=== PATIENT | female | born 1950 | race Caucasian/White ===

== ENCOUNTER 2021-09-13 09:05 | Outpatient (REF) | payer MEDICARE, OTHER, SELFPAY | END 2021-09-13 09:06 | disposition home or self-care (01) | LOC: HO.HMGCLDS 09:05 | PROVIDERS: PCP Internal Medicine; Visit Provider Internal Medicine | DX: Z20.822 Contact with and (suspected) exposure to COVID-19 (principal) | CPT/HCPCS: C9803; U0003; U0005 ==

== ENCOUNTER 2022-12-22 16:09 | Outpatient (REF) | payer MEDICARE, OTHER, SELFPAY ==
--- NOTE | ~2022-12-22 | US_ITS ---
EXAMINATION: US VENOUS ULTRASOUND WITH DOPPLER LOWER EXTREMITY, RIGHT CLINICAL INFORMATION: Right leg pain, history of DVT COMPARISON: None TECHNIQUE: Ultrasound of the deep veins is performed from the hip to the calf with compression sonography and color and pulse Doppler assessment. Spectral analysis with color-flow imaging is performed. FINDINGS: There is normal venous compression and respiratory variation and augmented flow. The visualized common femoral vein, superficial femoral vein, profunda femoral vein, popliteal vein, and the trifurcation region shows no evidence of deep venous thrombosis. There is no significant popliteal fossa cyst. If the patient's symptoms persist, followup ultrasound in 5 days 7 days might be of value to exclude proximal propagation from a non-visualized calf vein. US/US venous duplex LE RT IMPRESSION: No DVT demonstrated in the right lower extremity.
== END 2022-12-22 16:10 | disposition home or self-care (01) ==
LOC: HO.HMGCX 16:09
PROVIDERS: PCP Internal Medicine; Visit Provider Internal Medicine
DX: I82.403 Acute embolism and thrombosis of unspecified deep veins of lower extremity, bilateral (principal)
CPT/HCPCS: 93971

== ENCOUNTER 2024-12-11 09:46 | Outpatient (AMB) | payer MEDICARE, OTHER, SELFPAY ==
--- NOTE | 2024-12-11 09:51 | MHC.OFFVIS ---
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 She is having pain left shoulder. She reports this time for cortisone injection. She sees [facility]. Denies difficulty with getting up out of bed. No pain in right shoulder or neck. Denies thigh pain. No joint swelling. She continues to have numbness in her hands. She had nerve conduction study done at [facility] and reports that carpal tunnel syndrome right hand is worse than left. Review of Systems Const All systems reviewed & are unremarkable except as noted in HPI and below Physical Exam Vital Signs: Last Vital Signs Pulse 67 12/11/24 09:55 BP 150/80 H 12/11/24 09:55 Pulse Ox 97 12/11/24 09:55 Oxygen Delivery Method Room Air 12/11/24 09:55 BMI result Body Mass Index 28.0 Const Other: General: Comfortable CVS: RRR Respiratory: clear to auscultation bilaterally. Good respiratory effort Skin: No lesions seen MSK: Squaring of CMCs. Heberden nodes and Allan's nodes present. Loss of muscle bulk of right hypothenar muscle. 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 Good range of motion of right shoulder. Left shoulder abduction 170 degrees with pain. Limited full internal rotation of left shoulder. Good external rotation of left shoulder. She is able to get up out of exam table to standing position without using arms on armrest. Good range of motion of lower extremities. Assessment & Plan Assessment & Plan (1) Osteoarthritis of carpometacarpal (CMC) joint of both thumbs: Comment: Contributing time weakness Code(s): M18.0 - Bilateral primary osteoarthritis of first carpometacarpal joints Category: Medical Plan: OT ordered. Patient prefers to have occupational therapy in the spring. She will schedule visit. (2) Bilateral carpal tunnel syndrome: Comment: Diagnosed by nerve conduction study performed at the [facility]. She continues to wear wrist braces at night with minimal benefit. We discussed considering next steps for treatment with cortisone injections. Her symptoms are tolerable and she prefers to continue to wear wrist braces at night. Code(s): G56.03 - Carpal tunnel syndrome, bilateral upper limbs Category: Medical Plan: Continue to wear wrist braces at night I am requesting nerve conduction study results from [facility] Return to clinic in 6 months or sooner if needed (3) Osteoarthritis of glenohumeral joints, bilateral: Comment: Uncontrolled pain left shoulder. She is being managed by [facility] surgeons. Code(s): M19.011 - Primary osteoarthritis, right shoulder; M19.012 - Primary osteoarthritis, left shoulder Category: Medical Plan: Follow-up with [facility] for left shoulder cortisone injection (4) Arthralgia of multiple joints: Comment: She had an episode in 2019 4 where she had chronic pain in her legs from thighs to calves for a year, which was exacerbated with movement from upper extremities. She also had limited shoulder movement. Eventually she received right shoulder cortisone injection for management of degenerative joint disease 11/16/2023, which improved range of motion and pain of upper extremities and lower extremities. She has not had recurrence of similar episode. Inflammatory markers 03/26/2024 were normal. Can consider PMR in the differential diagnosis. Code(s): M25.50 - Pain in unspecified joint Category: Medical Plan: Monitor clinically Orders: Orders OT Evaluation and Treatment Today G56.03 - Carpal tunnel syndrome, bilateral upper limbs, M18.0 - Bilateral primary osteoarthritis of first carpometacarpal joints Coding Level of Care Code Est Pt Level 4 (50983) Complex EM visit Add On G2211 Diagnoses Osteoarthritis of carpometacarpal (CMC) joint of both thumbs M18.0 Bilateral carpal tunnel syndrome G56.03 Osteoarthritis of glenohumeral joints, bilateral M19.011; M19.012 Arthralgia of multiple joints M25.50
[2024-12-11 09:55] VITALS: BP 150/80; PULSE 67; O2SAT 97; BMI 28.0
--- OUTSIDE RECORDS SUMMARY | 2024-12-11 11:12 | XMS_ITS | Encounter Summary ---
Author Organization [facility] Address [address] [place] [address] Care Team Providers Care Notching Press Operator Name Role Phone Erum Ace MD Primary Care Provider [phone] Encounter Details Date Type Department Care Team (Late Contact Info) Description 07/14/2024 10:00 AM EDT Hospital Encounter TH HISTORIC ENCOUNTERS EASTERN CONVERSION ONLY Quan-Ninfa Gray MD [address] [place] [phone] Social History Tobacco Use Types Packs/Day Years Used Date Smoking Tobacco: Never Smokeless Tobacco: Never Alcohol Use Standard Drinks/Week Comments Yes 1 (1 standard drink = 0.6 oz pur e alcohol) Comments Unknown Sex and Gender Information Value Date Recorded Sex Assigned at Not on file Legal Sex Female 10:15 AM EST Gender Identity Not on file Sexual Orientation Not on file documented as of this encounter Plan of Treatment Upcoming Encounters Date Type Department Care Team (Late Contact Info) Description 01/22/2025 10:00 AM EDT Appointment Bone Density - [address] [phone] 02/12/2025 1:40 PM EDT Appointment Radiology Department - [address] [phone] 04/20/2025 9:45 AM EDT Office Visit Adult Medicine [facility] [address], [place] [phone] Johanna Rm PA [address], [place] 07/13/2025 11:30 AM EDT Office Visit [facility] Hematology Oncology [address] [place] [phone] Ninfa Caicedo MD [address] [place] [phone] documented as of this encounter Visit Diagnoses Not on filedocumented in this encounter Care Teams Notching Press Operator Relationship Specialty Start Date End Date Erum Ace MD [address] [place] [address] PCP - General Internal Medicine 03/22/21 documented as of this encounter
--- OUTSIDE RECORDS SUMMARY | 2024-12-11 11:12 | XMS_ITS | Clinical Summary ---
Author Organization [facility] Address [address] [place] [address] Care Team Providers Care Senior Licensing Manager Name Role Phone Erum Ace MD Primary Care Provider [phone] Allergies Active Allergy Reactions Criticality Noted Date Comments Penicillins 05/19/2020 Medications Medication Sig Dispensed Refills Start Date End Date Status FLUoxetine (PROzac) 20 MG capsule Take 20 mg by mouth daily. 0 Active traZODone (DESYREL) 25 MG split tablet Take 50 mg by mouth every night at bedtime. 0 Active vitamin C (ASCORBIC ACID) 250 MG tablet Take 250 mg by mouth daily. 0 Active Calcium Carb-Cholecalciferol (CALCIUM 1000 + D PO) Take 1,000 mg by mouth daily. 0 Active Multiple Vitamins-Minerals (MULTIVITAMIN ADULT PO) Take 1 tablet by mouth daily. 0 Active VITAMIN D PO Take by mouth. 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 Overview: Overview: S/P LUMPECTOMY AND XRT 2006 Immunizations Name Administration Dates Next Due Covid-19 (Pfizer) Dilution Required 01/14/2021,0 12/22/2020 Social History Tobacco Use Types Packs/Day Years Used Date Smoking Tobacco: Never Smokeless Tobacco: Never Alcohol Use Standard Drinks/Week Comments Yes 1 (1 standard drink = 0.6 oz pur e alcohol) More of a soical drinker Sex and Gender Information Value Date Recorded Sex Assigned at Not on file Gender Identity Not on file Sexual Orientation Not on file Job Start Date Occupation Industry Not on file Not on file Not on file Last Filed Vital Signs Vital Sign Reading Time Taken Comments Blood Pressure 152/64 07/14/2024 10:05 AM EDT Pulse 63 07/14/2024 10:05 AM EDT Temperature 36.8 ??C (98.3 ??F) 07/14/2024 10:05 AM E DT Respiratory Rate - - Oxygen Saturation 99% 07/14/2024 10:05 AM EDT Inhaled Oxygen Concentration - - Weight 73.2 kg (161 lb 6.4 oz) 07/14/2024 10:05 AM EDT Height 161.3 cm (5' 3.5 ) 07/14/2024 10:05 AM ED T Body Mass Index 28.14 07/14/2024 10:05 AM EDT Plan of Treatment Health Maintenance Due Date Last Done Comments Hepatitis C Screening 1950 Pneumococcal Vaccine (1 of 2 - PCV) 1954 Depression Screening 1960 Preventative Health Evaluation 1966 Shingrix-Zoster Vaccine (1 o f 2) 1967 Fall Risk Assessment 2013 Osteoporosis Screening (DEXA Scan) 2013 DTap / Tdap / Td (2 - Td or Tdap) 07/17/2022 07/17/2012 RSV Adult > 60+ Yrs or (1 - 1-dose 75+ series) 2023 COVID-19 Vaccine (4 - 2023-2 5 season) 2024 08/05/2021, 01/14/2021, 12/22/2020 Influenza Vaccine (#1) 2024 Hepatitis B Vaccines Aged Out No long er eligible based on patient's age to complete this topic RSV Ped < 20 months Aged Out No longe r eligible based on patient's age to complete this topic Care Teams Senior Licensing Manager Relationship Specialty Start Date End Date Erum Ace MD PCP - General Internal Medicine 07/08/21
--- OUTSIDE RECORDS SUMMARY | 2024-12-11 11:12 | XMS_ITS | Clinical Summary ---
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 4 Active calcium carbonate 1,500 mg (600 mg elemental calcium) tablet Take 1 tablet (1,500 mg total) by mouth 2 (two) times a day. 4 Active ascorbic acid (VITAMIN C) 250 mg tablet Take 1 tablet (250 mg total) by mouth 4 (four) times a week. Active MULTIVITAMIN ORAL Take 1 tablet by mouth 1 (one) time each day. Active aspirin 325 mg tablet Take 1 tablet (325 mg total) by mouth 1 (one) time each day. Active traZODone (DESYREL) 50 mg tablet TAKE 1 TABLET BY MOUTH EVERY DAY AT BEDTIME NEEDED FOR SLEEP 90 tablet 4 Active FLUoxetine (PROzac) 20 mg capsule TAKE 1 CAPSULE BY MOUTH EVERY DAY 90 capsule 1 5 Active FLUoxetine (PROzac) 20 mg capsule Take 1 capsule (20 mg total) by mouth 1 (one) time each day. 4 12/10/19 25 Discontinued Active Problems Problem Noted Date Diagnosed Date History of DVT (deep vein thrombosis) 09/03/2024 Overview (09/03/2024): 2007, Right Leg Intraductal papilloma 03/06/2023 Overview (09/03/2024): 03/06 right intraductal papilloma Vitamin D deficiency 10/26/2021 History of hip replacement, total, right 019 Overview (09/03/2024): 2010 for OA Osteoarthritis of fingers of both hands 11/01/19 Inflammatory arthritis 02/22/2018 Neutropenia 07/18/2012 Osteopenia 02/27/2007 Overview (09/03/2024): DXA 12/2021: t score lumbar spine -2.0, t score hip -2.1. 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 Overview (09/03/2024): S/P LUMPECTOMY AND XRT 2006 Depression 10/05/2005 Encounters Date Type Department Care Team Description 10/21/2024 8:15 AM EST Office Visit Adult Medicine [address] [phone] Erum Ace MD Other depression (Primary Dx); Vitamin D deficiency; Osteopenia, unspecified location; Menopause from Last 3 Months Immunizations Name Administration Dates Next Due Pfizer SARS-CoV-2 COVID-19, mRNA, LNP-S, preservative free 08/05/2021 Td Tetanus diptheria (Tdvax) 7yo and older 09/26 Td, Unspecified 04/22/2002 Tdap Tetanus diptheria acell ular pertussis (Boostrix; Adacel) 7yo and older 07/17/2012 Surgical History Surgery Date Site/Laterality Comments TONSILLECTOMY TOTAL HIP ARTHROPLASTY 03/15/2011 Right BREAST LUMPECTOMY 10/15/2005 Left lumpectomy with RT COLONOSCOPY 07/31/2005 no polyps COLONOSCOPY 07/15/2015 no polyps SCREENING MAMMOGRAM 03/05/2023 Bilateral Medical History Medical History Date Comments Osteopenia 02/27/2007 DXA 12/2021: t sc ore lumbar spine -2.0, t score hip -2.1. 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 S/P LUMPECTOMY AND XRT 2005 Depression 10/05/2005 Neutropenia (CMS/HCC) 07/18/2012 Inflammatory arthritis 02/22/2018 History of hip replacement, total, right 11/01/2018 2011 for OA Vitamin D deficiency 10/26/2021 Intraductal papilloma 03/06/202303/06 right intraductal papilloma Osteoarthritis of fingers of both hands 11/01/2018 History of DVT (deep vein thrombosis) 09/03/20242007, Right Leg Family History Medical History Relation Name Comments Breast cancer Daughter Stroke Father Breast cancer Mother Pancreatic cancer Other maternal u ncle Stomach cancer Paternal Grandfather Relation Name Status Comments Daughter Father Mother Other Paternal Grandfather Social History Tobacco Use Types Packs/Day Years Used Date Smoking Tobacco: Never Smokeless Tobacco: Never Tobacco Cessation:Counseling Given: Not Answered Alcohol Use Standard Drinks/Week Comments Yes 1 (1 standard drink = 0.6 oz pur e alcohol) Comments Unknown Sex and Gender Information Value Date Recorded Sex Assigned at Not on file Legal Sex Female 10:15 AM EST Gender Identity Not on file Sexual Orientation Not on file Obstetrics History Last Filed Vital Signs Vital Sign Reading Time Taken Comments Blood Pressure 134/70 10/21/2024 8:13 AM EST Pulse 80 10/21/2024 8:13 AM EST Temperature 36.2 ??C (97.1 ??F) 10/21/2024 8:13 AM ES T Respiratory Rate 16 10/21/2024 8:13 AM EST Oxygen Saturation 97% 10/21/2024 8:13 AM EST Inhaled Oxygen Concentration - - Weight 72.5 kg (159 lb 12.8 oz) 10/21/2024 8:13 AM EST Height 160 cm (5' 3 ) 10/21/2024 8:13 AM EST Body Mass Index 28.31 10/21/2024 8:13 AM EST Plan of Treatment Upcoming Encounters Date Type Department Care Team (Late st Contact Info) Description 01/22/2025 10:00 AM EDT Appointment Bone Density - [address] [phone] 02/12/2025 1:40 PM EDT Appointment Radiology Department - [address] [phone] 04/20/2025 9:45 AM EDT Office Visit Adult Medicine [facility] - [address] [phone] Johanna Rm PA [address] [place], [place] 07/13/2025 11:30 AM EDT Office Visit [facility] Hematology Oncology [address] [place] [phone] Quan-Ninfa Gray MD [address] [place] [phone] Health Maintenance Due Date Last Done Comments Pneumococcal Vaccine: 50+ Years (1 of 2 - PCV) 1969 Zoster Vaccines (1 of 2) 1969 Social Influencers of Health Screening 09/21/2022 RSV Immunization Patients 60+ Years Old (1 - 1-dose 75+ series) 2023 COVID-19 Vaccine ( season) 2024 08/05/2021, 01/14/2021, 12/22/2020 Depression Screening 09/26/2024 09/26/2023, 09/26/20 23 Falls Risk Assessment 09/26/2024 09/26/2023, 023 Medicare Annual Wellness Visit 09/26/2024 09/26/2023 Influenza Vaccine (#1) 2025 Postp oned from 06/15/2024 (Patient Refused) Cholesterol Screening (Lipid Panel) 04/14/2029 04/14/2024, 04/14/2024 Osteoporosis Screening (Bone Density Screening) 12/29/2031 12/28/2021, 11/18/2018 DTaP,Tdap,and Td Vaccines (4 - Td or Tdap) 09/26/2032 09/26/2022, 07/17/2012, 04/22/2002 Hepatitis C Screening Completed 04/19/2012, 012 Breast Cancer Screening Discontinued 02/04/20 24, 03/05/2023, 01/26/2023, Additional history exists HIB Vaccines Aged Out No longer eligi ble based on patient's age to complete this topic HPV Vaccines Aged Out No longer eligi ble based on patient's age to complete this topic Hepatitis A Vaccines Aged Out No long er eligible based on patient's age to complete this topic Hepatitis B Vaccines Aged Out No long er eligible based on patient's age to complete this topic IPV Vaccines Aged Out No longer eligi ble based on patient's age to complete this topic MMR Vaccines Aged Out No longer eligi ble based on patient's age to complete this topic Meningococcal ACWY Vaccine Aged Out N o longer eligible based on patient's age to complete this topic Meningococcal B Vacine Aged Out No lo nger eligible based on patient's age to complete this topic RSV Immunization Patients Under 20 months Aged Out No longer eligible based on patient's age to complete this topic Varicella Vaccines Aged Out No longer eligible based on patient's age to complete this topic Procedures Procedure Name Priority Date/Time Associated Diagnosis Comments BASIC METABOLIC PANEL Routine 10/21/2024 8:57 AM EST Osteopenia, unspecified location LIPID PANEL Routine 04/14/2024 SCREENING MAMMOGRAPHY BI 2-VIEW BREAST INC CAD Routine 02/04/2024 1:44 PM EDT Encounter for screening mammogram for malignant neoplasm of breast DEPRESSION SCREENING Routine 09/26/2023 FALLS RISK ASSESSMENT Routine 09/26/2023 DXA BONE DENSITY STUDY 1+ SITS AXIAL SKEL Routine 12/28/2021 3:52 PM EDT Disorder of bone, unspecified Disorder of cartilage, unspecified HEPATITIS C SCREENING Routine 04/19/2012 from Last 3 Months or Most Recently Relevant to Health Maintenance Results * Basic metabolic panel (10/21/2024 8:57 AM EST) Sodium 134 133 - 145 mmol/L LAB CHEMISTRY METHOD 10/21/2024 1:20 PM [facility] Potassium 4.6 3.5 - 5.5 mmol/L LAB CHEMISTRY METHOD 10/21/2024 1:20 PM [facility] Chloride 101 96 - 110 mmol/L LAB CHEMISTRY METHOD 10/21/2024 1:20 PM [facility] CO2 27 21 - 32 mmol/L LAB CHEMISTRY METHOD 10/21/2024 1:20 PM [facility] Anion Gap 6 3 - 11 LAB CHEMISTRY METHOD 10/21/2024 1:20 PM [facility] Glucose 100 70 - 100 mg/dL LAB CHEMISTRY METHOD 10/21/2024 1:20 PM [facility] BUN 13 5 - 25 mg/dL LAB CHEMISTRY METHOD 10/21/2024 1:20 PM [facility] Creatinine 0.59 0.50 - 1.10 mg/dL LAB CHEMISTRY METHOD 10/21/2024 1:20 PM [facility] eGFR 94 >=60 mL/min/1. 73m2 LAB CHEMISTRY METHOD 10/21/2024 1:20 PM [facility] Comment:Calculation based on the??Chronic Kidney Disease Epidemiology Collaboration (CKD-EPI) equation refit??without adjustment for race. BUN/Creatinine Ratio 22.0 LAB CHEMISTRY METHOD 10/21/2024 1:20 PM [facility] Calcium 9.3 8.5 - 10.5 mg/dL LAB CHEMISTRY METHOD 10/21/2024 1:20 PM [facility] Blood Venous blood specimen / Unknown Venipuncture / Unknown 10/21/2024 8:57 AM EST 10/21/2024 8:57 AM EST us Erum Ace MD LAB BLOOD ORDERABLES Final Resul t [facility] [address] [place] [address], [place] [phone] * Lipid panel (04/14/2024) LDL/HDL Ratio 3 0 - 4 Triglycerides 95 0 - 150 mg/dL Cholesterol 180 0 - 200 mg/dL HDL 62 >=40 mg/dL LDL Cholesterol 99 0 - 100 mg/dL Blood Venous blood specimen / Unknown us Historical Provider LAB BLOOD ORDERABLES Cierra l Result * SCREENING MAMMOGRAPHY BI 2-VIEW BREAST INC CAD (02/04/2024 1:44 PM EDT) Anatomical Region Laterality Modality Radiographic Alexandra ging 01/26/2023 1:26 PM EDT Narrative 02/05/2024 11:58 AM EDT This is a summary report. The complete report is available in the patient's medical record. If you cannot access the medical record, please contact the sending organization for a detailed fax or copy. Exam: Screening mammogram Findings: Digital bilateral full-field screening mammography is performed with tomosynthesis and interpreted with the aid of computer-aided detection. ??Comparison is made with 01/26/2023 and as far back as 10/25/2020. ?? History of left breast DCIS status post lumpectomy in 2005, also status post radiation therapy. ??History of an ultrasound-guided core biopsy right breast 03/05/2023 showing an intraductal papilloma, no atypia or carcinoma. Breast parenchyma is heterogeneously dense, which may obscure small masses. ??Stable lumpectomy changes with surgical clips in the posterior upper outer left breast. ??Stable small biopsy-proven intraductal papilloma with a biopsy marker located in the anterior retroareolar right breast. ??No new suspicious mass, architectural distortion, or suspicious calcifications. Impression: No mammographic evidence of malignancy. BI-RADS 2-benign Procedure Note Dominga Almeida MD - 06/02/2024 This is a summary report. The complete report is available in thepatient's medical record. If you cannot access the medical record, pleasecontact the sending organization for a detailed fax or copy. Exam: Screening mammogram Findings: Digital bilateral full-field screening mammography is performedwith tomosynthesis and interpreted with the aid of computer-aideddetection. Comparison is made with 01/26/2023 and as far back 10/25/2020. History of left breast DCIS status post lumpectomy in 2005, also statuspost radiation therapy. History of an ultrasound-guided core biopsy rightbreast 03/05/2023 showing an intraductal papilloma, no atypia orcarcinoma. Breast parenchyma is heterogeneously dense, which may obscure smallmasses. Stable lumpectomy changes with surgical clips in the posteriorupper outer left breast. Stable small biopsy-proven intraductal papillomawith a biopsy marker located in the anterior retroareolar right breast.No new suspicious mass, architectural distortion, or suspiciouscalcifications. Impression: No mammographic evidence of malignancy. BI-RADS 2-benign Erum Ace MD IMG XR PROCEDURES Final Result * Falls Risk Assessment (09/26/2023) Falls Risk Assessment abstracted Historical Provider HEALTH MAINTENANCE Final Result * Depression Screening (09/26/2023) Depression Screening abstracted Historical Provider HEALTH MAINTENANCE Final Result * DXA BONE DENSITY STUDY 1+ SITS AXIAL SKEL (12/28/2021 3:52 PM EDT) Anatomical Region Laterality Modality Bone Densitometr y 07/28/2021 1:16 PM EDT Narrative 12/28/2021 6:18 PM EDT BONE DENSITY SCAN (DEXA): FINDINGS: Lumbar Spine T-score is -2.0. ?? (SD relative to 20-29 y/o adult) Z-score is 0.3. ??(SD relative to age matched peers) This is considered osteopenia by WHO criteria. Left Hip T-score is -2.1. Z-score is -0.1. This is considered osteopenia by WHO criteria. Comparison exam(s): As recent as 11/18/2018 and as far back as 12/29/2003. Lumbar spine: 3.4% loss of bone mineral density compared with 2019, statistically significant at the 95% confidence level. ??No statistically significant change compared with the baseline exam. Left hip: 7.7% loss of bone mineral density compared with 2019, statistically significant at the 95% confidence level. ??No statistically significant change compared with the baseline exam. IMPRESSION: IMPRESSION: Osteopenia by WHO criteria. This patient has a 12% risk of major osteoporotic fracture and a 2.8% risk of hip fracture over the next 10 years. (World Health Organization Fracture Risk Assessment) [facility] Department of Internal Medicine recommends using National Osteoporosis Foundation (NOF) guidelines in treatment decisions related to osteoporosis. NOF guidelines suggest considering treatment for postmenopausal women and men aged 50 or older presenting with the following: History of hip or vertebral fracture. T-score = -2.5 (DXA) at the femoral neck, total hip, or spine, after appropriate evaluation to exclude secondary causes. Low bone mass (T-score between -1.0 and -2.5 at the femoral neck or spine) AND a 10-year probability of a hip fracture = 3% OR a 10-year probability of a major osteoporosis-related fracture = 20% based on the [place]-adapted WHO algorithm Please note that all treatment decisions require clinical judgment and consideration of individual patient factors, including patient preferences, co-morbidities, previous drug use, risk factors not captured in the FRAX model (e.g., frailty, falls, vitamin D deficiency, increased bone turnover, interval significant decline in bone density) and possible under- or over-estimation of fracture risk by FRAX. Optional alternative screening schedule based on christina Gutierrez., [facility] November 02, 2011 for patients with osteopenia (based on hip BMD T-score) is as follows: * ??advanced osteopenia (T scores -2.00 to -2.49), BMD testing every year * ??moderate osteopenia (T scores -1.50 to -1.99), BMD testing every 5 years mild osteopenia or normal BMD (T scores -1.50 and higher), BMD testing every 15 years Procedure Note Dominga Almeida MD - 10/03/2022 BONE DENSITY SCAN (DEXA): FINDINGS: Lumbar Spine T-score is -2.0. (SD relative to 20-29 y/o adult) Z-score is 0.3. (SD relative to age matched peers) This is considered osteopenia by WHO criteria. Left Hip T-score is -2.1. Z-score is -0.1. This is considered osteopenia by WHO criteria. Comparison exam(s): As recent as 11/18/2018 and as far back as12/29/2003. Lumbar spine: 3.4% loss of bone mineral density compared with 2019,statistically significant at the 95% confidence level. No statistically significant change comparedwith the baseline exam. Left hip: 7.7% loss of bone mineral density compared with 2019,statistically significant at the 95% confidence level. No statistically significant change comparedwith the baseline exam. IMPRESSION: IMPRESSION: Osteopenia by WHO criteria. This patient has a 12% risk of majorosteoporotic fracture and a 2.8% risk of hip fracture over the next 10 years. (World HealthOrganization Fracture Risk Assessment) [facility] Department of Internal Medicine recommendsusing National Osteoporosis Foundation (NOF) guidelines in treatment decisions related toosteoporosis. NOF guidelines suggest considering treatment for postmenopausal women and menaged 50 or older presenting with the following: History of hip or vertebral fracture. T-score = -2.5 (DXA) at the femoral neck, total hip, or spine, afterappropriate evaluation to exclude secondary causes. Low bone mass (T-score between -1.0 and -2.5 at the femoral neck or spine)AND a 10-year probability of a hip fracture = 3% OR a 10-year probability of a majorosteoporosis-related fracture = 20% based on the [place]-adapted WHO algorithm Please note that all treatment decisions require clinical judgment andconsideration of individual patient factors, including patient preferences, co- morbidities,previous drug use, risk factors not captured in the FRAX model (e.g., frailty, falls, vitaminD deficiency, increased bone turnover, interval significant decline in bone density) andpossible under- or over-estimation of fracture risk by FRAX. Optional alternative screening schedule based on christina Gutierrez., NEJMJanuary 2011 for patients with osteopenia (based on hip BMD T-score) is as follows: * advanced osteopenia (T scores -2.00 to -2.49), BMD testing every year * moderate osteopenia (T scores -1.50 to -1.99), BMD testing every 5years mild osteopenia or normal BMD (T scores -1.50 and higher), BMD testingevery 15 years [facility] IMG DXA PROCEDURES Final Result * Hepatitis C Screening (04/19/2012) [facility] Hepatitis C Screening abstracted Historical Provider MD HEALTH MAINTENANCE Final Result from Last 3 Months or Most Recently Relevant to Health Maintenance Insurance MEDICARE [facility] Care Teams 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
== END 2024-12-11 10:26 | disposition home or self-care (01) ==
PROVIDERS: PCP Internal Medicine; Visit Provider Internal Medicine Rheumatology
DX: M18.0 Bilateral primary osteoarthritis of first carpometacarpal joints (principal); G56.03 Carpal tunnel syndrome, bilateral upper limbs; M19.011 Primary osteoarthritis, right shoulder; M19.012 Primary osteoarthritis, left shoulder; M25.50 Pain in unspecified joint
CPT/HCPCS: 99214; G2211

== ENCOUNTER → 2024-12-11 09:46 | Outpatient (BNVA) | payer MEDICARE, OTHER, SELFPAY | PROVIDERS: PCP Internal Medicine; Visit Provider Internal Medicine Rheumatology | DX: M18.0 Bilateral primary osteoarthritis of first carpometacarpal joints (principal); G56.03 Carpal tunnel syndrome, bilateral upper limbs; M19.011 Primary osteoarthritis, right shoulder; M19.012 Primary osteoarthritis, left shoulder; M25.50 Pain in unspecified joint | CPT/HCPCS: 99212 ==

== ENCOUNTER 2025-02-17 14:19 | Emergency (ER) | payer OTHER, SELFPAY ==
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
[2025-02-17 14:26] VITALS: BP 180/82; PULSE 70; O2SAT 98
[2025-02-17 14:33] VITALS: BP 156/71; PULSE 85; RESP 16; TEMP 36.9; O2SAT 97; BMI 27.6
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
[2025-02-17 16:30] VITALS: BP 162/78; PULSE 78; RESP 18; TEMP 36.1; O2SAT 98
--- OUTSIDE RECORDS SUMMARY | 2025-02-17 17:29 | XMS_ITS | Encounter Summary ---
Author Organization [facility] Address [address] [place] [address] Care Team Providers Care Senior Manager Asset Protection Name Role Phone Erum Ace MD Primary Care Provider [phone] Encounter Details Date Type Department Care Team (Late st Contact Info) Description 07/14/2024 10:00 AM EDT Hospital Encounter TH HISTORIC ENCOUNTERS EASTERN CONVERSION ONLY Quan-Ninfa Gray MD [address] [place] [address] Social History Tobacco Use Types Packs/Day Years Used Date Smoking Tobacco: Never Smokeless Tobacco: Never Alcohol Use Standard Drinks/Week Comments Yes 1 (1 standard drink = 0.6 oz pur e alcohol) Comments No Sex and Gender Information Value Date Recorded Sex Assigned at Not on file Legal Sex Female 10:15 AM EST Gender Identity Not on file Sexual Orientation Not on file documented as of this encounter Plan of Treatment Upcoming Encounters Date Type Department Care Team (Late st Contact Info) Description 04/24/2025 9:45 AM EDT Office Visit Adult Medicine [facility] [address] [place] [phone] Johanna Rm PA [address] [place], [place] 07/13/2025 11:30 AM EDT Office Visit [facility] Hematology Oncology [address] [place] [phone] Ninfa Caicedo MD [address] [place] [phone] documented as of this encounter Visit Diagnoses Not on filedocumented in this encounter Care Teams Senior Manager Asset Protection Relationship Specialty Start Date End Date Erum Ace MD [address] [place] [phone] PCP - General Internal Medicine 03/22/21 documented as of this encounter
--- OUTSIDE RECORDS SUMMARY | 2025-02-17 17:29 | XMS_ITS | Encounter Summary ---
Author Organization [facility] Address [address] [place] [address] Care Team Providers Care Grain Weigher Name Role Phone Erum Ace MD Primary Care Provider [phone] Reason for Visit * Imaging (Routine) - Closed Specialty Diagnoses / Procedures Referred By Kendall dejesus Referred To Contact Radiology Diagnoses Encounter for screening mammogram for breast cancer Procedures MG Mammo Digital Screening w Cain bilat MG Mammo Digital Screening w Cain bilErum Contreras MD [address] [place] [phone] Phone: tel: fax: [facility] Referral ID Status Reason Start Date Expiration Date Visits Re quested Visits Authorized [id number] Closed 07/31/2024 07/31/2025 1 1 Encounter Details Date Type Department Care Team (Latest Contact Info) Description 02/12/2025 1:13 PM EDT - 02/12/2025 11:59 PM EDT Hospital Encounter Radiology Department - [address] [phone] Encounter for screening mammogram for breast cancer Discharge Disposition: Home or Self Care Social History Tobacco Use Types Packs/Day Years [...] on file documented as of this encounter Medications at Time of Discharge alendronate (FOSAMAX) 70 mg tablet Take 1 tablet (70 mg total) by mouth every 7 (seven) days. Take in the morning with a full glass of water, on an empty stomach, and do not take anything else by mouth or lie down for the next 30 min. 13 each 3 01/23/2025 01/23/2026 ascorbic acid (VITAMIN C) 250 mg tablet Take 1 tablet (250 mg total) by mouth 4 (four) times a week. aspirin 325 mg tablet Take 1 tablet (325 mg total) by mouth 1 (one) time each day. calcium carbonate 1,500 mg (600 mg elemental calcium) tablet Take 1 tablet (1,500 mg total) by mouth 2 (two) times a day. 180 tablet 1 01/15/2025 cholecalciferol (VITAMIN D-3) 50 mcg (2,000 unit) capsule Take 1 capsule (2,000 Units total) by mouth 1 (one) time each day. 90 capsule 1 01/15/2025 FLUoxetine (PROzac) 20 mg capsule TAKE 1 CAPSULE BY MOUTH EVERY DAY 90 capsule 1 12/10/2024 MULTIVITAMIN ORAL Take 1 tablet by mouth 1 (one) time each day. traZODone (DESYREL) 50 mg tablet TAKE 1 TABLET BY MOUTH EVERY DAY AT BEDTIME NEEDED FOR SLEEP 90 tablet 1 12/16/2024 documented as of this encounter Discharge Disposition Disposition Code Departure Means Destination Home or Self Care documented in this encounter Plan of Treatment Upcoming Encounters Date Type Department Care Team (Late st Contact Info) Description 04/24/2025 9:45 AM EDT Office Visit Adult Medicine [facility] [address] [place] [phone] Johanna Rm PA [address], [place] 07/13/2025 11:30 AM EDT Office Visit [facility] Hematology Oncology [address] [place] [phone] Ninfa Caicedo MD [address] [place] [phone] documented as of this encounter Procedures Procedure Name Priority Date/Time Associated Diagnosis Comments MG MAMMO DIGITAL SCREENING W CAIN BILAT Routine 02/12/2025 1:30 PM EDT Encounter for screening mammogram for breast cancer documented in this encounter Results * MG Mammo Digital Screening w Cain bilat (02/12/2025 1:30 PM EDT) Anatomical Region Laterality Modality Breast Bilateral Mammography 02/13/2025 9:17 AM EDT Impressions 02/13/2025 9:21 AM EDT No mammographic evidence for malignancy. ??Stable postlumpectomy changes in the left upper outer breast. BI-RADS CATEGORY: 2 - BENIGN RECOMMENDATION: Screening bilateral mammogram is recommended in 1 year. Mammo Location: [facility], [address] [place] [address], [id number], . -------- FINAL REPORT -------- Dictated By: Hannah Gomez Dictated Date: 02/13/2025 09:17 ET Assigned Physician: Hannah Gomez Reviewed and Electronically Signed By: Hannah Gomez Signed Date: 02/13/2025 09:21 ET Workstation ID: [id number] Transcribed By: Self Edit Transcribed Date: 02/13/2025 09:17 ET Narrative 02/13/2025 9:21 AM EDT Bilateral screening mammogram. CLINICAL: 74 years old, Female, routine annual exam. COMPARISON: Prior mammograms, latest from 02/04/2024. ?? TECHNIQUE: Bilateral MLO and CC views were obtained digitally with 3-D mammogram (digital breast tomosynthesis). Computer-aided detection was utilized in evaluation of this exam (CAD). FINDINGS: There are stable post lumpectomy changes in the left upper outer breast. There is no evidence of suspicious mass or new areas of architectural distortion. ??No worrisome calcifications are evident. ??There has been no significant change from prior exam(s). ?? BREAST DENSITY: C - The breasts are heterogeneously dense which may obscure small masses. Procedure Note Hannah Gomez MD - 02/13/2025 Bilateral screening mammogram. CLINICAL: 74 years old, Female, routine annual exam. COMPARISON: Prior mammograms, latest from 02/04/2024. TECHNIQUE: Bilateral MLO and CC views were obtained digitally with 3-Dmammogram (digital breast tomosynthesis). Computer-aided detection wasutilized in evaluation of this exam (CAD). FINDINGS: There are stable post lumpectomy changes in the left upper outer breast. There is no evidence of suspicious mass or new areas of architecturaldistortion. No worrisome calcifications are evident. There has been nosignificant change from prior exam(s). BREAST DENSITY: C - The breasts are heterogeneously dense which mayobscure small masses. IMPRESSION: No mammographic evidence for malignancy. Stable postlumpectomy changes inthe left upper outer breast. BI-RADS CATEGORY: 2 - BENIGN RECOMMENDATION: Screening bilateral mammogram is recommended in 1 year. Mammo Location: [facility], [address] [place] [address], [id number], . -------- FINAL REPORT -------- Dictated By: Hannah Gomez Dictated Date: 02/13/2025 09:17 ET Assigned Physician: Hannah Gomez Reviewed and Electronically Signed By: Hannah Gomez Signed Date: 02/13/2025 09:21 ET Workstation ID: [id number] Transcribed By: Self Edit Transcribed Date: 02/13/2025 09:17 ET Erum Ace MD IMG BI PROCEDURES Final Result documented in this encounter Visit Diagnoses Diagnosis Encounter for screening mammogram for breast cancer documented in this encounter Care Teams Grain Weigher Relationship Specialty Start Date End Date Erum Ace MD [address] [place] [phone] PCP - General Internal Medicine 03/22/21 documented as of this encounter
--- OUTSIDE RECORDS SUMMARY | 2025-02-17 17:29 | XMS_ITS | Clinical Summary ---
Author Organization [facility] [address] [facility] Address [address] [place] [address] Phone Care Team Providers Care [employer] Name Role Phone Erum Ace MD Primary Care Provider [phone] Allergies Active Allergy Reactions Criticality Noted Date Comments Penicillins 10/05/2005 Medications ascorbic acid (VITAMIN C) 250 mg tablet Take 1 tablet (250 mg total) by mouth 4 (four) times a week. Active MULTIVITAMIN ORAL Take 1 tablet by mouth 1 (one) time each day. Active aspirin 325 mg tablet Take 1 tablet (325 mg total) by mouth 1 (one) time each day. Active FLUoxetine (PROzac) 20 mg capsule TAKE 1 CAPSULE BY MOUTH EVERY DAY 90 capsule 1 12/10/2024 Active traZODone (DESYREL) 50 mg tablet TAKE 1 TABLET BY MOUTH EVERY DAY AT BEDTIME NEEDED FOR SLEEP 90 tablet 1 12/16/2024 Active calcium carbonate 1,500 mg (600 mg elemental calcium) tablet Take 1 tablet (1,500 mg total) by mouth 2 (two) times a day. 180 tablet 1 01/15/2025 Active cholecalciferol (VITAMIN D-3) 50 mcg (2,000 unit) capsule Take 1 capsule (2,000 Units total) by mouth 1 (one) time each day. 90 capsule 1 01/15/2025 Active alendronate (FOSAMAX) 70 mg tablet Take 1 tablet (70 mg total) by mouth every 7 (seven) days. Take in the morning with a full glass of water, on an empty stomach, and do not take anything else by mouth or lie down for the next 30 min. 13 each 3 01/23/2025 01/24/20 26 Active Active Problems Problem Noted Date Diagnosed Date History of DVT (deep vein thrombosis) 09/03/2024 Overview (09/03/2024): 2007, Right Leg Intraductal papilloma 03/06/2023 Overview (09/03/2024): 03/06 right intraductal papilloma Vitamin D deficiency 10/26/2021 History of hip replacement, total, right 019 Overview (09/03/2024): 2010 for OA Osteoarthritis of fingers of both hands 11/01/19 19 Inflammatory arthritis 02/22/2018 Neutropenia ([facility] V24) 07/18/2012 Osteopenia 02/27/2007 Overview (01/23/2025): 01/03 T score spine -2.0 hip -2.1 FRAX score 2.8% 10 year fracture risk 02/06 T score spine -2.1 hip -2.5 Carcinoma in situ of breast 01/16/2006 Overview (09/03/2024): S/P LUMPECTOMY AND XRT 2006 Depression 10/05/2005 Encounters Date Type Department Care Team Description 02/12/2025 1:13 PM EDT - 02/12/2025 11:59 PM EDT Hospital Encounter Radiology Department - [address] [address] Encounter for screening mammogram for breast cancer Discharge Disposition: Home or Self Care 01/22/2025 9:42 AM EDT - 01/22/2025 11:59 PM EDT Hospital Encounter Bone Density - [address] [address] Vitamin D deficiency; Osteopenia, unspecified location; Menopause Discharge Disposition: Home or Self Care from Last 3 Months Immunizations Name Administration [...] 07/15/2015 no polyps SCREENING MAMMOGRAM 03/05/2023 Bilateral STEREOTACTIC CORE BIOPSY Medical History Medical History Date Comments Osteopenia 02/27/2007 DXA 12/2021: t sc ore lumbar spine -2.0, t score hip -2.1. 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 S/P LUMPECTOMY AND XRT 2005 Depression 10/05/2005 Neutropenia (CMS/HCC V24) 07/18/2012 Inflammatory arthritis 02/22/2018 History of hip replacement, total, right 11/01/20182010 for OA Vitamin D deficiency 10/26/2021 Intraductal [...] Sexual Orientation Not on file Obstetrics History Para Term AB IAB SAB Ectopic Multiple Livin g Live Births 2 2 2 2 Date Outcome GA Total Labor Labor/2nd/3rd Weight Sex Type Anes PTL Josephine A1 A5 Name Clin Term Term Last Filed Vital Signs Vital Sign Reading [...] 9:45 AM EDT Office Visit Adult Medicine [id number] [place] [address] Johanna Rm PA [address] [place] [address] 07/13/2025 11:30 AM EDT Office Visit [facility] Hematology Oncology [address] [place] [address] Quan-Ninfa Gray MD [address] [place] [address] Health Maintenance Due Date Last Done Comments Pneumococcal Vaccine: 50+ Years (1 of 2 - PCV) 1969 Zoster Vaccines (1 of 2) 1969 Social Influencers of Health Screening 09/21/2022 RSV Immunization Adult Patients (1 - 1-dose 75+ series) 2023 COVID-19 Vaccine ( - season) 2024 08/05/2021, 01/14/2021, 12/22/2020 Depression Screening 09/26/2024 09/26/2023, 09/26/20 23 Falls Risk Assessment 09/26/2024 09/26/2023, 023 Medicare Annual Wellness Visit 09/26/2024 09/26/2023 Influenza Vaccine (Season Ended) 2025 Cholesterol Screening (Lipid Panel) 04/14/2029 04/14/2024, 04/14/2024 DTaP,Tdap,and Td Vaccines (4 - Td or Tdap) 09/26/2032 09/26/2022, 07/17/2012, 04/22/2002 Osteoporosis Screening (Bone Density Screening) 01/22/2035 01/22/2025, 12/28/2021, 11/18/2018 Hepatitis C Screening Completed 04/19/2012, 012 Breast Cancer Screening Discontinued 02/13/20, 02/04/2024, 03/05/2023, Additional history exists HIB Vaccines Aged Out [...] age to complete this topic Meningococcal B Vaccine Aged Out No l onger eligible based on patient's age to complete this topic RSV Immunization Patients Under 20 months Aged Out No longer eligible based on patient's age to complete this topic Varicella Vaccines Aged Out No longer eligible based on patient's age to complete this topic Procedures Procedure Name Priority Date/Time Associated Diagnosis Comments MG MAMMO DIGITAL SCREENING W MP BILAT Routine 02/12/2025 1:30 PM EDT Encounter for screening mammogram for breast cancer BD BONE DENSITY DXA AXIAL SKELETON Routine 01/22/2025 10:05 AM EDT Vitamin D deficiency Osteopenia, unspecified location Menopause LIPID PANEL Routine 04/14/2024 DEPRESSION SCREENING Routine 09/26/2023 FALLS RISK ASSESSMENT Routine 09/26/2023 HEPATITIS C SCREENING Routine 04/19/2012 from Last 3 Months or Most Recently Relevant to Health Maintenance Results * MG Mammo Digital Screening w Mp bilat (02/12/2025 1:30 PM EDT) Anatomical Region Laterality Modality Breast Bilateral Mammography 02/13/2025 9:17 AM EDT Impressions 02/13/2025 9:21 AM EDT No mammographic evidence for malignancy. ??Stable postlumpectomy changes in the left upper outer breast. BI-RADS CATEGORY: 2 - BENIGN RECOMMENDATION: Screening bilateral mammogram is recommended in 1 year. Mammo Location: [facility], [address] [place] [address], [id number], . -------- FINAL REPORT -------- Dictated By: Hannah Gomez Dictated Date: 02/13/2025 09:17 ET Assigned Physician: Hannah Gomez Reviewed and Electronically Signed By: Hannah Gomez Signed Date: 02/13/2025 09:21 ET Workstation ID: [id number] Transcribed By: Self Edit Transcribed Date: 02/13/2025 [...] is recommended in 1 year. Mammo Location: [facility], [address] [place] [address], [id number], . -------- FINAL REPORT -------- Dictated By: Hannah Gomez Dictated Date: 02/13/2025 09:17 ET Assigned Physician: Hannah Gomez Reviewed and Electronically Signed By: Hannah Gomez Signed Date: 02/13/2025 09:21 ET Workstation ID: [id number] Transcribed By: Self Edit Transcribed Date: 02/13/2025 09:17 ET us Erum Ace MD IMG BI PROCEDURES Final Result * BD Bone Density DXA Axial Skeleton (01/22/2025 10:05 AM EDT) Anatomical Region Laterality Modality Wrist, Hip, L-spine Bone Densito metry 01/22/2025 5:28 PM EDT Impressions 01/22/2025 5:30 PM EDT Osteoporosis Reference Information: The T-score is the number of standard deviations above or below the standard which is normal for young adults at their peak bone mineral density. The World Health Organization (WHO) interprets the T-scores as follows: At or above ??-1 SD ?Normal bone density Between -1 and -2.5 SD ??Osteopenia At or below -2.5 SD ?Osteoporosis -------- FINAL REPORT -------- Dictated By: Nena Luna Dictated Date: 01/22/2025 17:28 ET Assigned Physician: Nena Luna Reviewed and Electronically Signed By: Nena Luna Signed Date: 01/22/2025 17:30 ET Workstation ID: [id number] Transcribed By: Self Edit Transcribed Date: 01/22/2025 17:28 ET Narrative 01/22/2025 5:30 PM EDT STUDY: ??DUAL ENERGY X-RAY ABSORPTIOMETRY / DXA REASON FOR EXAM: ?? Female, 74 years old ??osteopenia TECHNIQUE: ?? Bone Mineral Density (BMD) measurements of the lumbar spine and left hip were obtained using [employer] Discovery W (S/N [id number]). ?? COMPARISON: December 28, 2021 ?? FINDINGS: L1-L4 BMD: 0.816 g/cm2 L1-L4 T score: -2.1. ??This corresponds to osteopenia. This represents a -0.8 % decrease in bone density compared with prior exam from December 28, 2021. Left femoral neck BMD: 0.575 g/cm2 Left femoral neck T score: -2.5. ??This corresponds to osteoporosis. Left total hip BMD: 0.763 g/cm2 Left total hip T score: -1.5. ??This corresponds to osteopenia. This represents a -3.7* % decrease in bone density compared with prior exam from December 28, 2021. * - Indicates a statistically significant change. Procedure Note Nena Luna MD - 01/22/2025 STUDY: DUAL ENERGY X-RAY ABSORPTIOMETRY / DXA REASON FOR EXAM: Female, 74 years old osteopenia TECHNIQUE: Bone Mineral Density (BMD) measurements of the lumbar spineand left hip were obtained using [employer] Discovery W (S/N [id number]). COMPARISON: December 28, 2021 FINDINGS: L1-L4 BMD: 0.816 g/cm2 L1-L4 T score: -2.1. This corresponds to osteopenia. This represents a -0.8 % decrease in bone density compared with prior examfrom December 28, 2021. Left femoral neck BMD: 0.575 g/cm2 Left femoral neck T score: -2.5. This corresponds to osteoporosis. Left total hip BMD: 0.763 g/cm2 Left total hip T score: -1.5. This corresponds to osteopenia. This represents a -3.7* % decrease in bone density compared with priorexam from December 28, 2021. * - Indicates a statistically significant change. IMPRESSION: Osteoporosis Reference Information: The T-score is the number of standard deviations above or below thestandard which is normal for young adults at their peak bone mineraldensity. The World Health Organization (WHO) interprets the T-scores asfollows: At or above -1 SD Normal bone density Between -1 and -2.5 SD Osteopenia At or below -2.5 SD Osteoporosis -------- FINAL REPORT -------- Dictated By: Nena Luna Dictated Date: 01/22/2025 17:28 ET Assigned Physician: Nena Luna Reviewed and Electronically Signed By: Nena Luna Signed Date: 01/22/2025 17:30 ET Workstation ID: [id number] Transcribed By: Self Edit Transcribed Date: 01/22/2025 17:28 ET us Erum Ace MD IMG DXA PROCEDURES Final Result * Lipid panel (04/14/2024) [facility] LDL/HDL Ratio 3 0 - 4 Triglycerides 95 0 - 150 mg/dL Cholesterol 180 0 - 200 mg/dL HDL 62 >=40 mg/dL LDL Cholesterol 99 0 - 100 mg/dL Blood Venous blood specimen / Unknown Result [facility] Provider LAB BLOOD ORDERABLES Cierra l Result * Falls Risk Assessment (09/26/2023) [facility] Falls Risk Assessment abstracted [facility] Provider HEALTH MAINTENANCE Final Result * Depression Screening (09/26/2023) [facility] Depression Screening abstracted [facility] Provider HEALTH MAINTENANCE Final Result * Hepatitis C Screening (04/19/2012) [facility] Hepatitis C Screening abstracted Result [facility] Provider HEALTH MAINTENANCE Final Result from Last 3 Months or Most Recently Relevant to Health Maintenance Insurance MEDICARE [facility] Care Teams [employer] Relationship Specialty Start Date End Date Erum Ace MD [address] [place] [address] PCP - General Internal Medicine 03/22/21
--- OUTSIDE RECORDS SUMMARY | 2025-02-17 17:29 | XMS_ITS | Clinical Summary ---
Author Organization [facility] Address [address] [place] [address] Care Team Providers Care Prescription Clerk Lenses Name Role Phone Erum Ace MD Primary Care Provider [phone] Allergies Active Allergy Reactions Criticality Noted Date [...] age to complete this topic Care Teams Prescription Clerk Lenses Relationship Specialty Start Date End Date Erum Ace MD PCP - General Internal Medicine 07/08/21
[2025-02-17 18:10] VITALS: BP 162/78; PULSE 78; RESP 18; TEMP 36.1; O2SAT 98
== END 2025-02-17 18:10 | disposition home or self-care (01) ==
PROVIDERS: Emergency Provider Emergency Medicine Emergency Medical Services; PCP Internal Medicine
DX: Z04.1 Encounter for examination and observation following transport accident (principal); H92.02 Otalgia, left ear
CPT/HCPCS: 70450; 72125; 99283; 99284

== ENCOUNTER → 2025-02-17 15:20 | Outpatient (BNV) | payer MEDICARE, OTHER, SELFPAY | PROVIDERS: Emergency Provider Emergency Medicine Emergency Medical Services; PCP Internal Medicine; Visit Provider Nuclear Medicine | DX: E04.2 Nontoxic multinodular goiter (principal); I67.89 Other cerebrovascular disease; H31.119 Age-related choroidal atrophy, unspecified eye | CPT/HCPCS: 70450; 72125 ==

== ENCOUNTER 2025-03-03 13:00 | Outpatient (RCR) | payer MEDICARE, OTHER, SELFPAY | END 2025-03-05 09:28 | disposition home or self-care (01) | LOC: HO.OT 13:00 | PROVIDERS: PCP Internal Medicine; Visit Provider Internal Medicine Rheumatology | DX: M18.0 Bilateral primary osteoarthritis of first carpometacarpal joints (principal); G56.03 Carpal tunnel syndrome, bilateral upper limbs | CPT/HCPCS: 97110; 97140; 97165; 97530; 97535 ==

== ENCOUNTER 2025-05-26 10:34 | Outpatient (AMB) | payer OTHER, SELFPAY ==
--- OUTSIDE RECORDS SUMMARY | 2024-07-14 10:00 | XMS_ITS | Encounter Summary ---
Author Organization [facility] Address [address] [place] [address] Care Team Providers Care Secretary Specialist Name Role Phone Erum Ace MD Primary Care Provider [phone] Encounter Details Date Type Department Care Team (Late st Contact Info) Description 07/14/2024 10:00 AM EDT Hospital Encounter TH HISTORIC ENCOUNTERS EASTERN CONVERSION ONLY Quan-Ninfa Gray MD [address] [place] [address] Social History Tobacco Use Types Packs/Day Years Used Date Smoking Tobacco: Never Smokeless Tobacco: Never Alcohol Use Standard Drinks/Week Comments Yes 1 (1 standard drink = 0.6 oz pur e alcohol) Housing Instability Answer Date Recorde d Are you worried that in the next 2 months you may not have stable housing? No 04/27/2025 Food Access & Nutrition Answer Date Rec orded Do you have access to a vari ety of food including fruits and vegetables? Yes 04/27/2025 Access to Healthcare Answer Date Record ed Within the last 3 months, ho w many times did you visit the emergency department for your medical care? 0 04/27/2025 Health Literacy Answer Date Recorded How often do you need to hav e someone help you when you read instructions, pamphlets, or other written material from your doctor or pharmacy? Never 04/27/2025 Caregiver: How often do you need to have someone help you when you read instructions, pamphlets, or other written material from your doctor or pharmacy? Not on file 04/27/2025 Financial Risk Answer Date Recorded How hard is it for you to pa y for the very basics like food, housing, medical care, and air conditioning / heating? Not very hard 04/27/2025 Transportation Answer Date Recorded Has the lack of transportati on kept you from meetings, work, or from getting things needed for daily living? No Has the lack of transportati on kept you from medical appointments or from getting medications? No 04/27/2025 Social Isolation Answer Date Recorded How often do you feel lonely or isolated from those around you? Sometimes 04/27/2025 Food Risk Answer Date Recorded Within the past 12 months we worried whether our food would run out before we got money to buy more. Never true 04/27/2025 Within the past 12 months th e food we bought just didn't last and we didn't have money to get more. Never true 04/27/2025 Dependent Care Answer Date Recorded Do you need help finding or paying for care for your loved ones. For example, child care provider or elderly care for an older adult? No 04/27/2025 Education Answer Date Recorded Do you think completing more education or training, like finishing a GED, going to college, or learning a trade, would be helpful for you? No 04/27/2025 Employment and Income Answer Date Recor ded During the last four weeks, have you been actively looking for work? No 04/27/2025 Living Situation Answer Date Recorded What is your living situation? 0 04/27/2025 Comments No Sex and Gender Information Value Date Recorded Sex Assigned at Not on file Legal Sex Female 10:15 AM EST Gender Identity Not on file Sexual Orientation Not on file documented as of this encounter Plan of Treatment Upcoming Encounters Date Type Department Care Team (Late st Contact Info) Description 07/13/2025 11:30 AM EDT Office Visit [facility] Hematology Oncology [address] [place] [phone] Ninfa Caicedo MD [address] [place] [phone] 02/13/2026 11:30 AM EDT Appointment Radiology Department - [address] [phone] documented as of this encounter Visit Diagnoses Not on filedocumented in this encounter Care Teams Secretary Specialist Relationship Specialty Start Date End Date Erum Ace MD [address] [place] [address] PCP - General Internal Medicine 03/22/21 documented as of this encounter
[2025-05-26 10:36] VITALS: BP 150/84; PULSE 62; O2SAT 97; BMI 27.7
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
--- OUTSIDE RECORDS SUMMARY | 2025-05-26 11:39 | XMS_ITS | Clinical Summary ---
Author Organization [facility] Address [address] [place] [address] Care Team Providers Care Chair Caner Name Role Phone Erum Ace MD Primary Care Provider [phone] Allergies Active Allergy Reactions Criticality Noted Date [...] 63 07/14/2024 10:05 AM EDT Temperature 36.8 C (98.3 F) 07/14/2024 10:05 AM EDT Respiratory Rate - - Oxygen Saturation 99% [...] 2024 08/05/2021, 01/14/2021, 12/22/2020 Influenza Vaccine (#1) 2025 Hepatitis B Vaccines Aged Out No long er eligible based on patient's age to complete this topic RSV Ped < 20 months Aged Out No longe r eligible based on patient's age to complete this topic Care Teams Chair Caner Relationship Specialty Start Date End Date Erum Ace MD PCP - General Internal Medicine 07/08/21
--- OUTSIDE RECORDS SUMMARY | 2025-05-26 11:39 | XMS_ITS ---
Author Name [facility] Organization Unknown Care Team Organization Name Specialty Phone Email Start Date End Da te [facility] Erum Ace Primary Care 03/23/2023 [facility] Vi, PROVIDER Primary Care 08/22/202205/15
== END 2025-05-26 11:26 | disposition home or self-care (01) ==
LOC: HO.RHES 10:35
PROVIDERS: PCP Internal Medicine; Visit Provider Internal Medicine Rheumatology
DX: M18.0 Bilateral primary osteoarthritis of first carpometacarpal joints (principal); G56.03 Carpal tunnel syndrome, bilateral upper limbs; M25.50 Pain in unspecified joint
CPT/HCPCS: 99213; G2211